=== PATIENT | male | born 1970 | race Caucasian/White ===

== ENCOUNTER 2018-08-23 12:09 | Emergency (ER) | payer OTHER ==
[2018-08-23 12:43] VITALS: BP 100/77
--- NOTE | 2018-08-23 13:58 | UC ---
UC General HPI - HPI Summary HPI Summary: States he has had a sore throat and productive cough for 2 weeks. Has not worsened but hasn't gotten better. No fevers. +Congestion. Taking cough drops , which usually works for him but not this time. No fevers. No N/V. One episode of diarrhea today. No SOB. No CP. Used an inhaler a long time ago. Smoking 1-1.5 ppd not interested in quitting. MEds: reviewed - History of Current Complaint Chief Complaint: UCRespiratory Stated Complaint: ST,COUGH Time Seen by Provider: 08/23/18 13:32 Pain Intensity: 8 - Allergy/Home Medications Allergies/Adverse Reactions: Allergies Allergy/AdvReac Type Severity Reaction Status Date / Time No Known Allergies Allergy Verified 08/23/18 12:44 PMH/Surg Hx/FS Hx/Imm Hx Previously Healthy: Yes Cardiovascular History: Hypertension - Surgical History Surgical History: Yes Surgery Procedure, Year, and Place: inguinal hernia repairs, b/L as ; left side 2005 - Family History Known Family History: Positive: None - Social History Alcohol Use: None Substance Use Type: None Smoking Status (MU): Heavy Every Day Tobacco Smoker Type: Cigarettes Amount Used/How Often: 1-2 PPD Have You Smoked in the Last Year: Yes Household Exposure Type: Cigarettes Review of Systems All Other Systems Reviewed And Are Negative: Yes Constitutional: Positive: Negative ENT: Positive: Sore Throat Respiratory: Positive: Cough Physical Exam Triage Information Reviewed: Yes Appearance: Well-Appearing Vital Signs: Initial Vital Signs Temp 97.5 F 08/23/18 12:39 Pulse 75 08/23/18 12:39 Resp 18 08/23/18 12:39 BP 100/77 08/23/18 12:39 Pulse Ox 94 08/23/18 12:39 Vital Signs Reviewed: Yes ENT Exam: Normal ENT: Positive: Pharyngeal erythema, Uvula midline Neck: Positive: Supple, Nontender Respiratory: Positive: Other: - diminished breath sounds more prominent on right side. No W/R/R. No increase in work of breathing Cardiovascular: Positive: RRR, No Murmur Skin Exam: Normal Diagnostics - Radiology CXR Radiology Interpretation Completed By: Radiologist Summary of Radiographic Findings: No active cardiopulmonary disease Course/Dx - Course Course Of Treatment: This is a 48 yr old smoker who presents with persistent cough for 2 weeks. CXR: Negative. Plan. Diagnosis is viral syndrome. Start Albuterol inhaler as directed with spacer. REcommend cough suppresant as prescribed. Recommend follow up with your primary care doctor regarding your ' blood pressure medicine' - your blood pressure is low normal, may need to cut back on dose or discontinue medication if it is for your blood pressure. Discontinue or attempt to cut back on smoking. If symptoms persist or worsen, call primary for further evaluation or return to urgent care or the ER - Diagnoses Provider Diagnosis: Viral syndrome, Tobacco abuse Discharge - Sign-Out/Discharge Documenting (check all that apply): Patient Departure All imaging exams completed and their final reports reviewed: Yes - Discharge Plan Condition: Fair Disposition: HOME Prescriptions: Albuterol HFA INHALER* [Ventolin HFA Inhaler*] 2 puff INH Q4H PRN #1 mdi PRN Reason: Cough Benzonatate CAP* [Tessalon 100 MG CAP*] 200 mg PO BID PRN #60 cap PRN Reason: Cough Spacer/Holding Chamber (NF) [Easivent CHAMBER (NF)] 1 applic INH Q4HR PRN #1 device PRN Reason: Cough Referrals: Yehuda Rodriguez MD [Primary Care Provider] - Additional Instructions: Diagnosis is viral syndrome Start Albuterol inhaler as directed with spacer REcommend cough suppresant as prescribed Recommend follow up with your primary care doctor regarding your 'blood pressure medicine' - your blood pressure is low normal, may need to cut back on dose or discontinue medication if it is for your blood pressure Discontinue or attempt to cut back on smoking If symptoms persist or worsen, call primary for further evaluation or return to urgent care or the ER - Billing Disposition and Condition Condition: FAIR Disposition: Home
== END 2018-08-23 14:10 | disposition home or self-care (01) ==
LOC: UCCORT 12:09
DX: B34.9 Viral infection, unspecified (principal); I10 Essential (primary) hypertension; F17.210 Nicotine dependence, cigarettes, uncomplicated
CPT/HCPCS: 71046; 99212; G0463